=== PATIENT | female | born 1940 | race American Indian/Alaskan Native ===

== ENCOUNTER 2021-06-25 21:45 | Observation (INO) | payer MEDICARE ==
[2021-06-26] MEDS ORDERED: ASPIRIN 325 MG TAB PO ONE (02:04)
--- NOTE | 2021-06-26 02:05 | Emergency Department Report ---
ED Chest Pain HPI - General Chief Complaint: Head Injury Stated Complaint: FELL OUT OF BED,HIT HEAD PUI?: No Time Seen by Provider: 06/26/21 01:56 Source: patient, EMS Mode of arrival: Stretcher Limitations: Physical Limitation - History of Present Illness Initial Comments: Patient is a 78-year-old female that presents emergency room with complaints of chest pain and a fall out of bed. Patient states she developed chest pain approximately 1 hour prior to falling out of bed. Patient states she was reaching for something on her nightstand and she fell out of bed and hit her head. Patient denies loss of consciousness. Patient denies shortness of breath. Patient states she is on Coumadin. Patient states she has a headache. Patient states her headache is a 4 out of 10. Patient states her headache is better with rest and worse with movement. Patient states her chest pain is in her substernal and left chest. Patient states the chest pain is nonradiating. Patient states is a 10 out of 10. Patient presents from a local [facility]. Patient resides at [facility]. Patient is accompanied by chart. Patient has a past medical history of end-stage renal disease on dialysis, atrial fibrillation, CAD, CHF, hypertension, anemia, TN, TIA. Patient brought in by EMS. Report received from EMS. Patient denies recent travel. Patient denies recent international travel. Patient denies exposure to the novel coronavirus. Patient denies sick contacts. Patient denies fever and chills. Patient denies cough. Patient denies diarrhea. Patient denies coming in contact with anybody with symptoms of the novel coronavirus. . Complaint: chest pain -: Sudden Severity scale (0 -10): 2 - Related Data Allergies Allergy/AdvReac Type Severity Reaction Status Date / Time adhesive Allergy Unknown Verified 06/26/21 01:37 latex Allergy Unknown Verified 06/26/21 01:37 Penicillins Allergy Unknown Verified 06/26/21 01:37 Sulfa (Sulfonamide Allergy Unknown Verified 06/26/21 01:37 Antibiotics) rubber Allergy Unknown Uncoded 06/26/21 01:37 Heart Score - HEART Score History: Moderately suspicious EKG: Non-specific Age: > 65 Risk factors: > 3 risk factors or hx of atherosclerotic disease Troponin: > 3x normal limit HEART Score: 8 - EKG Read Time Time EKG Completed: 01:49 EKG Read Time: 01:51 ED Review of Systems ROS: Stated complaint: FELL OUT OF BED,HIT HEAD Other details as noted in HPI Constitutional: denies: chills, fever Eyes: denies: eye pain, eye discharge, vision change ENT: denies: ear pain, throat pain Respiratory: denies: cough, shortness of breath, wheezing Cardiovascular: as per HPI, chest pain. denies: palpitations Endocrine: no symptoms reported Gastrointestinal: denies: abdominal pain, nausea, diarrhea Genitourinary: denies: urgency, dysuria, discharge Musculoskeletal: denies: back pain, joint swelling, arthralgia Skin: denies: rash, lesions Neurological: as per HPI, headache. denies: weakness, paresthesias Psychiatric: denies: anxiety, depression Hematological/Lymphatic: denies: easy bleeding, easy bruising ED Past Medical Hx - Past Medical History Previous Medical History?: Yes Hx CVA: Yes Hx Congestive Heart Failure: Yes Hx Diabetes: Yes Hx Renal Disease: Yes (fistula R upper arm) Hx Headaches / Migraines: Yes Hx COPD: Yes Hx Dementia: Yes Additional medical history: unspecified Afib - Surgical History Past Surgical History?: Yes Additional Surgical History: R arm fistula, R BKA - Family History Family history: no significant - Social History Smoking Status: Never Smoker Substance Use Type: None ED Physical Exam - General Limitations: Physical Limitation General appearance: alert, in no apparent distress - Head Head exam: Present: atraumatic, normocephalic - Eye Eye exam: Present: normal appearance - ENT ENT exam: Present: mucous membranes moist - Neck Neck exam: Present: normal inspection - Respiratory Respiratory exam: Present: normal lung sounds bilaterally. Absent: respiratory distress, wheezes, rales, rhonchi, stridor, chest wall tenderness - Cardiovascular Cardiovascular Exam: Present: regular rate, normal rhythm, normal heart sounds. Absent: systolic murmur, diastolic murmur, rubs, gallop - GI/Abdominal GI/Abdominal exam: Present: soft, normal bowel sounds - Extremities Exam Extremities exam: Present: normal inspection - Back Exam Back exam: Present: normal inspection - Neurological Exam Neurological exam: Present: alert, oriented X3 - Psychiatric Psychiatric exam: Present: normal affect, normal mood - Skin Skin exam: Present: warm, dry, intact, normal color. Absent: rash ED Course Vital Signs 06/26/21 06/26/21 06/26/21 00:51 03:15 03:24 Temperature 97.0 F L Pulse Rate 107 H 107 H Respiratory 18 18 Rate Blood Pressure 109/54 Blood Pressure 118/61 [Right] O2 Sat by Pulse 100 93 Oximetry 06/26/21 06/26/21 06/26/21 03:31 03:45 04:01 Temperature Pulse Rate 106 H 110 H 102 H Respiratory 17 15 15 Rate Blood Pressure 115/59 115/59 104/54 Blood Pressure [Right] O2 Sat by Pulse Oximetry ED Medical Decision Making - Lab Data Result diagrams: 06/26/21 02:41 06/26/21 02:41 - EKG Data -: EKG Interpreted by Me EKG shows normal: axis, intervals, QRS complexes, ST-T waves Rate: tachycardia - EKG Data Interpretation: other (A. fib) - Radiology Data Radiology results: report reviewed, image reviewed interpreted by me: Chest x-ray: No pneumonia, no pneumothorax, no foreign body, no osseous findings, pulmonary edema noted,CHF changes. CHEST 1 VIEW 06/26/2021 1:20 AM INDICATION / CLINICAL INFORMATION: Chest Pain. COMPARISON: None available. FINDINGS: SUPPORT DEVICES: None. HEART / MEDIASTINUM: Moderate cardiomegaly LUNGS / PLEURA: Mild interstitial edema and tiny bilateral effusions No pneumothorax. ADDITIONAL FINDINGS: Bilateral axillary and brachial venous stents. IMPRESSION: 1. Mild CHF CT HEAD WITHOUT CONTRAST INDICATION / CLINICAL INFORMATION: Fall with a head injury. Headache TECHNIQUE: All CT scans at this location are performed using CT dose reduction for ALARA by means of automated exposure control. COMPARISON: None available. FINDINGS: HEMORRHAGE: None. EXTRA-AXIAL SPACES: Normal in size and morphology for the patient's age. VENTRICULAR SYSTEM: Normal in size and morphology for the patient's age. CEREBRAL PARENCHYMA: Moderate age-appropriate cerebral atrophy with extensive microangiopathy No significant abnormality. No acute territorial infarct. MIDLINE SHIFT OR HERNIATION: None. CEREBELLUM / BRAINSTEM: No significant abnormality. ORBITS: Normal as visualized. SOFT TISSUES of HEAD: No significant abnormality. CALVARIUM: No significant abnormality. PARANASAL SINUSES / MASTOID AIR CELLS: Right sphenoid sinus mucus retention cyst ADDITIONAL FINDINGS: None. IMPRESSION: 1. No acute intracranial abnormality. 2. Extensive microangiopathy and moderate cerebral atrophy - Medical Decision Making Patient is a 80-year-old female who presents emergency room with complaints of chest pain and fall. Patient states her chest pain started at all prior to states she was lying in bed and fell out of bed and hit her head on the floor. Patient is currently on Coumadin for A. fib. Patient is adequately anticoagulated per labs that came with the patient's [facility] chart. Patient has a history of end-stage renal disease, TIA, TN, cellulitis,. Patient had labs done which are consistent with end-stage renal disease, elevated tr oponin and elevated BNP. Patient had a chest x-ray which shows mild CHF changes. Patient had a EKG which shows A. fib and no ST changes. I personally reviewed the EKG and chest x-ray. Patient admitted to the hospital service for further evaluation treatment. Critical care time documented due to the multiple reassessments, prolonged time at the bedside, interpretation of diagnostics and labs. - Differential Diagnosis Chest pain, CHF, fall, head injury, ICH, ACS Critical Care Time: Yes Critical care time in (mins) excluding proc time.: 35 Critical care attestation.: If time is entered above; I have spent that time in minutes in the direct care of this critically ill patient, excluding procedure time. Critical Care Time: 35 minutes ED Disposition Clinical Impression: On anticoagulant therapy Chest pain Qualifiers: Chest pain type: unspecified Qualified Code(s): R07.9 - Chest pain, unspecified Fall Qualifiers: Encounter type: initial encounter Qualified Code(s): W19.XXXA - Unspecified fall, initial encounter Head injury Qualifiers: Encounter type: initial encounter Qualified Code(s): S09.90XA - Unspecified injury of head, initial encounter Headache Qualifiers: Headache type: post-traumatic Headache chronicity pattern: acute headache Intractability: not intractable Qualified Code(s): G44.319 - Acute post- traumatic headache, not intractable CHF (congestive heart failure) Qualifiers: Heart failure type: unspecified Heart failure chronicity: acute Qualified Code(s): I50.9 - Heart failure, unspecified Disposition: 09 ADMITTED INPATIENT Is pt being admited?: Yes Does the pt Need Aspirin: No Condition: Critical Time of Disposition: 04:14
--- NOTE | 2021-06-26 02:36 | XRay Report ---
CHEST 1 VIEW 06/26/2021 1:20 AM INDICATION / CLINICAL INFORMATION: Chest Pain. COMPARISON: None available. FINDINGS: SUPPORT DEVICES: None. HEART / MEDIASTINUM: Moderate cardiomegaly LUNGS / PLEURA: Mild interstitial edema and tiny bilateral effusions No pneumothorax. ADDITIONAL FINDINGS: Bilateral axillary and brachial venous stents. IMPRESSION: 1. Mild CHF Signer Name: Louis Ramos MD Signed: 06/26/2021 2:32 AM Workstation Name: [id number]
--- NOTE | 2021-06-26 03:01 | Cat Scan Report ---
CT HEAD WITHOUT CONTRAST INDICATION / CLINICAL INFORMATION: Fall with a head injury. Headache TECHNIQUE: All CT scans at this location are performed using CT dose reduction for ALARA by means of automated e xposure control. COMPARISON: None available. FINDINGS: HEMORRHAGE: None. EXTRA-AXIAL SPACES: Normal in size and morphology for the patient's age. VENTRICULAR SYSTEM: Normal in size and morphology for the patient's age. CEREBRAL PARENCHYMA: Moderate age-appropriate cerebral atrophy with extensive microangiopathy No sign ificant abnormality. No acute territorial infarct. MIDLINE SHIFT OR HERNIATION: None. CEREBELLUM / BRAINSTEM: No significant abnormality. ORBITS: Normal as visualized. SOFT TISSUES of HEAD: No significant abnormality. CALVARIUM: No significant abnormality. PARANASAL SINUSES / MASTOID AIR CELLS: Right sphenoid sinus mucus retention cyst ADDITIONAL FINDINGS: None. IMPRESSION: 1. No acute intracranial abnormality. 2. Extensive microangiopathy and moderate cerebral atrophy Signer Name: Louis Ramos MD Signed: 06/26/2021 2:57 AM Workstation Name: [id number]
[2021-06-26 03:02] LABS: Basophils % (Auto) 0.1 % (0.0-1.8); Eosinophils % (Auto) 0.3 % (0.0-4.3); Hematocrit 24.4 % (30.3-42.9); Hemoglobin 7.5 gm/dl (10.1-14.3); Lymphocytes # (Auto) 1.2 K/mm3 (1.2-5.4); Lymphocytes % (Auto) 10.7 % (13.4-35.0); Mean Corpuscular HGB Conc 31 % (30-34); Mean Corpuscular Volume 90 fl (79-97); Monocytes # (Auto) 1.1 K/mm3 (0.0-0.8); Monocytes % (Auto) 10.4 % (0.0-7.3); Platelet Count 211 K/mm3 (140-440)
[2021-06-26 03:03] LABS: Red Cell Distribution Width 22.5 % (13.2-15.2)
[2021-06-26 03:13] LABS: INR 2.69 (0.87-1.13)
[2021-06-26 03:14] LABS: Partial Thromboplastin Time 56.1 Sec. (24.2-36.6)
[2021-06-26] MEDS ORDERED: NITROGLYCERIN 0.4 MG TAB SUBL SL PRN (03:52)
[2021-06-26] MEDS ORDERED: ACETAMINOPHEN 325 MG TAB PO PRN ×2 (03:52)
[2021-06-26] MEDS ORDERED: ONDANSETRON 4 MG/2 ML INJ IV PRN (03:52)
[2021-06-26] MEDS ORDERED: traMADol 50 MG TAB PO PRN (03:52)
[2021-06-26] MEDS ORDERED: MORPHINE 4 MG/1 ML INJ IV PRN (03:52)
[2021-06-26] MEDS ORDERED: MORPHINE 2 MG/1 ML INJ IV PRN ×2 (03:52)
[2021-06-26] MEDS ORDERED: MAGNESIUM HYDROXIDE (MOM) ORAL LIQD UDC PO PRN (03:52)
[2021-06-26 03:59] LABS: Albumin 2.5 g/dL (3.9-5); Calcium 8.4 mg/dL (8.4-10.2)
--- NOTE | 2021-06-26 04:10 | History and Physical Report ---
History of Present Illness Date of examination: 06/26/21 Date of admission: 06/26/2021 Chief complaint: Chest Pain History of present illness: 80-year-old -[place] female with known history of end-stage renal disease on dialysis, diabetes mellitus, hypertension, congestive heart failure, history of A. fib and COPD presents into the emergency room today complaining of chest pain. She had falling out of the bed while trying to reach a nightstand earlier today hitting her head. She denies any loss of consciousness denies any headache. Patient denies any blurry vision. Chest pain was said to have started prior to having a fall. Denies any associated shortness of breath, no nausea vomiting and no abdominal pain. No no relieving or exacerbating factor for the chest pain. No radiation of the chest pain. Patient has been in the half-way for rehab. 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 Work-up in the emergency room today, labs reveals hemoglobin of 7.5 hematocrit was 24.4, potassium of 3.3, troponin of 0.258. BNP of 70,000. Chest x-ray shows mild CHF. CT scan of the head has been unremarkable. Patient has been admitted for evaluation of her chest pain. Past History Past Medical History: atrial fib, diabetes, dialysis, ESRD, hypertension, stroke Past Surgical History: Other (Right arm AV fistula, Right AKA) Social history: no significant social history Family history: no significant family history Medications and Allergies Allergies Allergy/AdvReac Type Severity Reaction Status Date / Time adhesive Allergy Unknown Verified 06/26/21 01:37 latex Allergy Unknown Verified 06/26/21 01:37 Penicillins Allergy Unknown Verified 06/26/21 01:37 Sulfa (Sulfonamide Allergy Unknown Verified 06/26/21 01:37 Antibiotics) rubber Allergy Unknown Uncoded 06/26/21 01:37 Active Meds: Active Medications Acetaminophen (Acetaminophen 325 Mg Tab) 650 mg PO Q4H PRN PRN Reason: Pain MILD(1-3)/Fever >100.5/MELO Acetaminophen (Acetaminophen 325 Mg Tab) 650 mg PO Q6H PRN PRN Reason: Pain, Mild (1-3) Aspirin (Aspirin Ec 325 Mg Tab) 325 mg PO QDAY ZAYNAB Heparin Sodium (Porcine) (Heparin 5,000 Unit/1 Ml Vial) 5,000 unit SUB-Q Q8HR ZAYNAB Magnesium Hydroxide (Magnesium Hydroxide (Mom) Oral Liqd Udc) 30 ml PO Q4H PRN PRN Reason: Constipation Morphine Sulfate (Morphine 2 Mg/1 Ml Inj) 2 mg IV Q4H PRN PRN Reason: Pain, Moderate (4-6) Morphine Sulfate (Morphine 4 Mg/1 Ml Inj) 4 mg IV Q4H PRN PRN Reason: Pain , Severe (7-10) Morphine Sulfate (Morphine 4 Mg/1 Ml Inj) 2 mg IV Q5MIN PRN PRN Reason: Chest Pain Nitroglycerin (Nitroglycerin 0.4 Mg Tab Subl) 0.4 mg SL Q5M PRN PRN Reason: Chest Pain Ondansetron HCl (Ondansetron 4 Mg/2 Ml Inj) 4 mg IV Q8H PRN PRN Reason: Nausea And Vomiting Sodium Chloride (Sodium Chloride 0.9% 10 Ml Flush Syringe) 10 ml IV BID ZAYNAB Sodium Chloride (Sodium Chloride 0.9% 10 Ml Flush Syringe) 10 ml IV PRN PRN PRN Reason: LINE FLUSH Sodium Chloride (Sodium Chloride 0.9% 10 Ml Flush Syringe) 10 ml IV PRN PRN PRN Reason: LINE FLUSH Tramadol HCl (Tramadol 50 Mg Tab) 50 mg PO Q6H PRN PRN Reason: Pain, Moderate (4-6) Review of Systems Constitutional: no fever, no chills Ears, nose, mouth and throat: no nasal congestion, no sore throat Cardiovascular: chest pain, no palpitations Respiratory: no cough, no shortness of breath Gastrointestinal: no abdominal pain, no nausea, no vomiting, no diarrhea Genitourinary Female: no pelvic pain, no flank pain, no dysuria, no hematuria Musculoskeletal: no neck pain, no low back pain Integumentary: no rash, no pruritis Neurological: other (Eecent fall), no headaches, no confusion Exam - Constitutional Vitals: Temp Pulse Resp BP Pulse Ox 97.0 F L 106 H 17 115/59 93 06/26/21 00:51 06/26/21 03:31 06/26/21 03:31 06/26/21 03:31 06/26/21 03:24 General appearance: Present: no acute distress, well-nourished - EENT Eyes: Present: PERRL, EOM intact. Absent: scleral icterus ENT: hearing intact, clear oral mucosa, dentition normal - Neck Neck: Present: supple, normal ROM - Respiratory Respiratory effort: normal Respiratory: bilateral: CTA - Cardiovascular Rhythm: regular Heart Sounds: Present: S1 & S2. Absent: systolic murmur, diastolic murmur, rub, click - Extremities Extremities: No edema Extremity abnormal: pulses diminished (Left leg), other (Right AKA with drain in place, blood soaked dressing over wound on left leg. Limited range of motion left knee.) - Abdominal General gastrointestinal: Present: soft, non-tender, non-distended, normal bowel sounds. Absent: mass - Integumentary Integumentary: Present: clear, warm, dry. Absent: rash - Musculoskeletal Musculoskeletal: strength equal bilaterally - Psychiatric Psychiatric: appropriate mood/affect, intact judgment & insight, memory intact, cooperative - Neurologic Neurologic: CNII-XII intact, no focal deficits, moves all extremities HEART Score - HEART Score History: Moderately suspicious EKG: Non-specific Age: > 65 Risk factors: > 3 risk factors or hx of atherosclerotic disease Troponin: > 3x normal limit HEART Score: 8 Results - Labs CBC & Chem 7: 06/26/21 02:41 06/26/21 02:41 Labs: Abnormal lab results 06/26/21 06/26/21 06/26/21 Range/Units 02:41 02:41 02:41 RBC 2.70 L (3.65-5.03) M/mm3 Hgb 7.5 L (10.1-14.3) gm/dl Hct 24.4 L (30.3-42.9) % RDW 22.5 H (13.2-15.2) % Lymph % (Auto) 10.7 L (13.4-35.0) % Branch % (Auto) 10.4 H (0.0-7.3) % Branch # (Auto) 1.1 H (0.0-0.8) K/mm3 Seg Neutrophils % 78.5 H (40.0-70.0) % Seg Neutrophils # 8.6 H (1.8-7.7) K/mm3 PT 29.0 H (12.2-14.9) Sec. INR 2.69 H (0.87-1.13) APTT 56.1 H (24.2-36.6) Sec. Potassium 3.3 L (3.6-5.0) mmol/L Chloride 97.1 L (98-107) mmol/L Carbon Dioxide 31 H (22-30) mmol/L BUN 18 H (7-17) mg/dL Creatinine 2.4 H (0.6-1.2) mg/dL Glucose 174 H (65-100) mg/dL Alkaline Phosphatase 139 H (35-129) units/L Total Protein 4.8 L (6.3-8.2) g/dL Albumin 2.5 L (3.9-5) g/dL Assessment and Plan - Patient Problems (1) Chest pain Current Visit: Yes Status: Acute Qualifiers: Chest pain type: unspecified Qualified Code(s): R07.9 - Chest pain, unspecified Plan to address problem: Patient admitted and placed on telemetry. We will check serial cardiac enzymes. We will place patient on sublingual nitroglycerin and IV morphine as needed for chest pain. Patient started on daily aspirin. Consult placed to cardiology for evaluation and recommendation. (2) Fall Current Visit: Yes Status: Acute Qualifiers: Encounter type: initial encounter Qualified Code(s): W19.XXXA - Unspecified fall, initial encounter Plan to address problem: Patient will be placed on fall precautions. (3) Headache Current Visit: Yes Status: Acute Qualifiers: Headache type: post-traumatic Headache chronicity pattern: acute headache Intractability: not intractable Qualified Code(s): G44.319 - Acute post- traumatic headache, not intractable Plan to address problem: Possibly secondary to the recent fall. CT scan of the head negative. Patient will be placed on analgesic medication as needed. CT scan of the head was negative. (4) DVT prophylaxis Current Visit: Yes Status: Acute Plan to address problem: Patient placed on anticoagulation with subcutaneous heparin. (5) Full code status Current Visit: Yes Status: Acute Plan to address problem: Patient is full code.
[2021-06-26 04:24] LABS: Chol/HDL Ratio 2.5 %
[2021-06-26] MEDS: HEPARIN 5,000 UNIT/1 ML VIAL SUB-Q SCH ×2 (06:17→15:35)
[2021-06-26] MEDS ORDERED: FUROSEMIDE 40 MG/4 ML INJ IV ONE (07:49)
--- NOTE | 2021-06-26 07:52 | Discharge Summary ---
Providers - Providers Date of Admission: 06/26/21 03:52 Date of discharge: 06/26/21 Attending physician: AYDE GAYTAN 06/26/21 Consult to Cardiac Rehabilitation [CONS] Routine Reason For Exam: Phase I 06/26/21 03:52 Consult to Cardiology [CONS] Routine Consulting Provider: KATERYNA WILSON Reason For Exam: chest pain 06/26/21 06:59 Consult to Physician [CONS] Routine Comment: Consulting Provider: DOUG FRY Physician Instructions: Reason For Exam: ESRD- ON DIALYSIS- ROSALINDA JEAN BAPTISTE,SAT 06/26/21 07:00 Consult to Wound/ET Nurse [CONS] Routine Reason For Exam: wound eval- LOWER EXTREMITY WOUNDS Primary care physician: MIRELA MCLEAN Hospitalization Reason for admission: cp Condition: Critical Hospital course: 80-year-old -[place] female with known history of end-stage renal disease on dialysis, diabetes mellitus, hypertension, congestive heart failure, history of A. fib and COPD presents into the emergency room today complaining of chest pain. She had falling out of the bed while trying to reach a nightstand earlier today hitting her head. She denies any loss of consciousness denies any headache. Patient denies any blurry vision. Chest pain was said to have started prior to having a fall. Denies any associated shortness of breath, no nausea vomiting and no abdominal pain. No no relieving or exacerbating factor for the chest pain. No radiation of the chest pain. Patient has been in the [facility] for rehab. 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 Work-up in the emergency room reveals hemoglobin of 7.5 hematocrit was 24.4, potassium of 3.3, troponin of 0.258. BNP of 70,000. Chest x-ray shows mild CHF. CT scan of the head has been unremarkable. Patient was admitted for evaluation of her chest pain. Cardiology was consulted and felt that the patient had chronically elevated troponins in the setting of ESRD. EKG revealed no acute ischemic changes. Cardiology opted for no further work-up including echocardiogram or ischemic evaluation. Patient is to resume hemodialysis schedule of Tuesday and Tuesday. Because patient is scheduled for dialysis tomorrow, we will opt to have follow-up then and no dialysis today. Patient is asymptomatic with regards to respiratory status no CHF symptoms and satting 90 percentile on room air Dedicated discharge time 35 minutes. Disposition: 01 HOME / SELF CARE / HOMELESS Final Discharge Diagnosis (Prints w/discharge instructions): Chest pain, GERD, mild CHF exacerbation, ESRD, DM type II, hypertension, history of A. fib, COPD Core Measure Documentation - Palliative Care Palliative Care/ Comfort Measures: Not Applicable - Core Measures Any of the following diagnoses?: none Exam - Constitutional Vitals: Temp Pulse Resp BP Pulse Ox 97.0 F L 105 H 16 123/67 97 06/26/21 00:51 06/26/21 07:31 06/26/21 07:31 06/26/21 07:31 06/26/21 07:31 General appearance: Present: no acute distress, well-nourished - EENT Eyes: Present: PERRL ENT: hearing intact, clear oral mucosa - Neck Neck: Present: supple, normal ROM - Respiratory Respiratory effort: normal Respiratory: bilateral: CTA - Cardiovascular Heart Sounds: Present: S1 & S2. Absent: rub, click - Extremities Extremities: pulses symmetrical, No edema Peripheral Pulses: within normal limits - Abdominal General gastrointestinal: Present: soft, non-tender, non-distended, normal bowel sounds Female genitourinary: Present: normal - Integumentary Integumentary: Present: clear, warm, dry - Musculoskeletal Musculoskeletal: gait normal, strength equal bilaterally - Psychiatric Psychiatric: appropriate mood/affect, intact judgment & insight - Neurologic Neurologic: CNII-XII intact, moves all extremities Plan Activity: advance as tolerated Weight Bearing Status: Weight Bear as Tolerated Diet: renal Follow up with: MIRELA MCLEAN MD [Primary Care Provider] - 7 Days BROCK VAZQUEZ MD [Staff Physician] - 7 Days
--- NOTE | 2021-06-26 08:18 | Consultation ---
History of Present Illness Consult date: 06/26/21 Requesting physician: DORINDA SAMS Consult reason: chest pain History of present illness: Primary Clinical Exercise Specialist: Vic Aldana Pt is a 80-year-old AA female who presented s/p fall. She states she was leaning over toward the table beside her bed and accidentally fell out of bed. Pt denies dizziness, lightheadedness, syncope, or LOC. She otherwise has no complaints. Cardiology has been consulted for chest pain. Pt denies chest pain or any additional cardiac complaints upon assessment. She wants to be discharged. Trop is elevated though trending down, 0.258 -> 0.234. ECG reveals no acute ischemic changes. Of note, pt has chronically elevated troponins in the setting of ESRD. Beverly are currently elevated above baseline, though likely secondary to slight volume overload. Echo 10/2020 - EF 50-55%, diastolic dysfxn, RV mod dilated, RV systolic fxn mildly reduced, severe TR, RVSP 58.7mmHg. Past History Past Medical History: atrial fib, diabetes, dialysis, ESRD, hypertension, stroke Past Surgical History: Other (R AKA). denies: CABG, PTCA Social history: denies: smoking, alcohol abuse Family history: no significant family history Medications and Allergies Allergies Allergy/AdvReac Type Severity Reaction Status Date / Time adhesive Allergy Unknown Verified 06/26/21 01:37 latex Allergy Unknown Verified 06/26/21 01:37 Penicillins Allergy Unknown Verified 06/26/21 01:37 Sulfa (Sulfonamide Allergy Unknown Verified 06/26/21 01:37 Antibiotics) rubber Allergy Unknown Uncoded 06/26/21 01:37 Active Meds: Active Medications Acetaminophen (Acetaminophen 325 Mg Tab) 650 mg PO Q4H PRN PRN Reason: Pain MILD(1-3)/Fever >100.5/MELO Aspirin (Aspirin Ec 325 Mg Tab) 325 mg PO QDAY ZAYNAB Heparin Sodium (Porcine) (Heparin 5,000 Unit/1 Ml Vial) 5,000 unit SUB-Q Q8HR ZAYNAB Last Admin: 06/26/21 06:17 Dose: Not Given Documented by: Magnesium Hydroxide (Magnesium Hydroxide (Mom) Oral Liqd Udc) 30 ml PO Q4H PRN PRN Reason: Constipation Morphine Sulfate (Morphine 2 Mg/1 Ml Inj) 2 mg IV Q4H PRN PRN Reason: Pain, Moderate (4-6) Morphine Sulfate (Morphine 4 Mg/1 Ml Inj) 4 mg IV Q4H PRN PRN Reason: Pain , Severe (7-10) Morphine Sulfate (Morphine 2 Mg/1 Ml Inj) 2 mg IV Q5MIN PRN PRN Reason: Chest Pain Nitroglycerin (Nitroglycerin 0.4 Mg Tab Subl) 0.4 mg SL Q5M PRN PRN Reason: Chest Pain Ondansetron HCl (Ondansetron 4 Mg/2 Ml Inj) 4 mg IV Q8H PRN PRN Reason: Nausea And Vomiting Sodium Chloride (Sodium Chloride 0.9% 10 Ml Flush Syringe) 10 ml IV BID ZAYNAB Sodium Chloride (Sodium Chloride 0.9% 10 Ml Flush Syringe) 10 ml IV PRN PRN PRN Reason: LINE FLUSH Tramadol HCl (Tramadol 50 Mg Tab) 50 mg PO Q6H PRN PRN Reason: Pain, Moderate (4-6) Review of Systems Constitutional: no fever, no chills, no sweats Ears, nose, mouth and throat: no nasal congestion, no sore throat Cardiovascular: shortness of breath (chronic), no chest pain, no palpitations, no edema, no syncope, no lightheadedness Respiratory: no cough Gastrointestinal: no abdominal pain, no nausea, no vomiting Genitourinary Female: no pelvic pain, no flank pain, no dysuria Musculoskeletal: no neck stiffness, no neck pain Integumentary: wounds, no rash Neurological: motor disturbance (s/p fall), no head injury, no paralysis, no weakness, no numbness, no tingling, no seizures, no syncope, no vertigo, no headaches Endocrine: no cold intolerance, no heat intolerance Hematologic/Lymphatic: no easy bruising, no easy bleeding Allergic/Immunologic: no anaphylaxis Physical Examination Last Vital Signs Temp 97.0 F L 06/26/21 00:51 Pulse 105 H 06/26/21 07:31 Resp 16 06/26/21 07:31 BP 123/67 06/26/21 07:31 Pulse Ox 97 06/26/21 07:31 General appearance: no acute distress HEENT: Positive: EOMI, Normocephaly Neck: Positive: neck supple, trachea midline Cardiac: Positive: irregularly irregular, S1/S2 Lungs: Positive: Decreased Breath Sounds Neuro: Positive: Grossly Intact Abdomen: Positive: Soft. Negative: Tender Skin: Negative: Rash Musculoskeletal: No Pain Extremities: Present: edema (mild LLE), Other (s/p R AKA) Results 06/26/21 02:41 06/26/21 10:25 Cardiac Enzymes 06/26/21 Range/Units 02:41 AST 16 (5-40) units/L Coagulation 06/26/21 Range/Units 02:41 PT 29.0 H (12.2-14.9) Sec. INR 2.69 H (0.87-1.13) APTT 56.1 H (24.2-36.6) Sec. Lipids 06/26/21 Range/Units 02:41 Triglycerides 123 (2-149) mg/dL Cholesterol 80 (50-199) mg/dL HDL Cholesterol 32 L (40-59) mg/dL Cholesterol/HDL Ratio 2.50 % CBC 06/26/21 Range/Units 02:41 WBC 10.9 (4.5-11.0) K/mm3 RBC 2.70 L (3.65-5.03) M/mm3 Hgb 7.5 L (10.1-14.3) gm/dl Hct 24.4 L (30.3-42.9) % Plt Count 211 (140-440) K/mm3 Lymph # (Auto) 1.2 (1.2-5.4) K/mm3 [place] # (Auto) 1.1 H (0.0-0.8) K/mm3 Eos # (Auto) 0.0 (0.0-0.4) K/mm3 Baso # (Auto) 0.0 (0.0-0.1) K/mm3 Comprehensive Metabolic Panel 06/26/21 Range/Units 02:41 Sodium 137 (137-145) mmol/L Potassium 3.3 L (3.6-5.0) mmol/L Chloride 97.1 L (98-107) mmol/L Carbon Dioxide 31 H (22-30) mmol/L BUN 18 H (7-17) mg/dL Creatinine 2.4 H (0.6-1.2) mg/dL Glucose 174 H (65-100) mg/dL Calcium 8.4 (8.4-10.2) mg/dL AST 16 (5-40) units/L ALT 17 (7-56) units/L Alkaline Phosphatase 139 H (35-129) units/L Total Protein 4.8 L (6.3-8.2) g/dL Albumin 2.5 L (3.9-5) g/dL - Imaging and Cardiology Echo: report reviewed EKG: report reviewed, image reviewed - EKG Interpretation EKG: no acute changes EKG interpretations - EKG Supraventricular dysrhythmia: atrial fibrillation Repolarization changes or abnormalities: nonspecific abnormality, ST segment, and/or T wave Assessment and Plan Assessment: S/p Fall NSTEMI Type 2/Chronically Elevated Troponins (in the setting of ESRD) Severe PVD/RFoot Gangrene (s/p 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 Beverly trending down. ECG reveals no acute ischemic changes. Recommend conservative cardiac mgmt at this time. Continue home cardiac regimen. Otherwise stable cardiac status. No objection to discharge. Follow-up with Dr. Aldana in 1-2 weeks ([phone]). Ischemic eval may be considered as an outpatient if warranted. Pt seen in conjunction with Dr. Huitron, who agrees with the assessment and plan of care. - Patient Problems (1) Status post fall Current Visit: Yes Status: Acute (2) NSTEMI (non-ST elevated myocardial infarction) Current Visit: Yes Status: Acute Plan to address problem: Type 2 (3) ESRD on hemodialysis Current Visit: Yes Status: Chronic (4) Hypotension Current Visit: Yes Status: Chronic (5) Atrial fibrillation Current Visit: Yes Status: Chronic Qualifiers: Atrial fibrillation type: permanent Qualified Code(s): I48.21 - Permanent a trial fibrillation (6) PVD (peripheral vascular disease) Current Visit: Yes Status: Chronic
[2021-06-26] MEDS ORDERED: REGADENOSON 0.4 MG/5 ML INJ IV ONE (08:19)
--- NOTE | 2021-06-26 10:41 | Electrocardiograph Report ---
[facility] Test Date: 2021-06-26 Test Time: 01:49:21 Pat Name: ELADIO SAENZ Department: Room: [place] [address] Gender: F Computer Engineering Technician: DARRION : 1940 Requested By: OLGA CASTLE III Order Number: [id number] Reading MD: Jacek Vega Measurements Intervals [place] Rate: 107 P: IA: QRS: 7 QRSD: 102 T: QT: 286 QTc: 383 Interpretive Statements Atrial fibrillation Low voltage, extremity and precordial leads Nonspecific T abnormalities, lateral leads PRWP. NSST'S No previous ECG available for comparison Electronically Signed On 06-26-2021 10:41:29 EDT by Jacek Vega
[2021-06-26 12:07] LABS: Calcium 9.1 mg/dL (8.4-10.2)
[2021-06-26 18:35] VITALS: BP 102/60
[2021-06-27] MEDS ORDERED: ASPIRIN EC 325 MG TAB PO SCH (10:00)
== END 2021-06-26 18:22 | disposition home or self-care (01) ==
LOC: ED 21:45 → 4A 06-26 03:52 → EDBD 06-26 03:52
PROVIDERS: ADMIT Internal Medicine Geriatric Medicine; ATTEND Hospitalist
DX: S09.90XA Unspecified injury of head, initial encounter (principal); R07.89 Other chest pain; G44.319 Acute post-traumatic headache, not intractable; I12.0 Hypertensive chronic kidney disease with stage 5 chronic kidney disease or end stage renal disease; N18.6 End stage renal disease; E11.22 Type 2 diabetes mellitus with diabetic chronic kidney disease; I21.4 Non-ST elevation (NSTEMI) myocardial infarction; I95.9 Hypotension, unspecified; I48.91 Unspecified atrial fibrillation; I73.9 Peripheral vascular disease, unspecified; J44.9 Chronic obstructive pulmonary disease, unspecified; F03.90 Unspecified dementia, unspecified severity, without behavioral disturbance, psychotic disturbance, mood disturbance, and anxiety; Z99.2 Dependence on renal dialysis; Z79.899 Other long term (current) drug therapy; Z98.890 Other specified postprocedural states; Z86.73 Personal history of transient ischemic attack (TIA), and cerebral infarction without residual deficits; Z79.82 Long term (current) use of aspirin; Z79.01 Long term (current) use of anticoagulants; W06.XXXA Fall from bed, initial encounter; Y93.89 Activity, other specified; Y92.89 Other specified places as the place of occurrence of the external cause; Y99.8 Other external cause status
CPT/HCPCS: 36415; 70450; 71045; 80053; 80061; 83880; 84484; 85025; 85610; 85730; 93005; 93306; 96374; 99291; G0378; J2270; 80048